=== PATIENT | male | born 1965 | race Hispanic/Latino ===

== ENCOUNTER 2017-12-02 17:20 | Emergency (ER) | payer SELFPAY ==
[2017-12-02] MEDS ORDERED: Lidocaine 1% (PF) 30 ML VIAL ONE (17:36)
[2017-12-02] MEDS ORDERED: Adacel (T-DAP) 0.5 ML VIAL ONE (17:36)
--- NOTE | 2017-12-02 18:28 | RAD ---
THREE VIEWS OF THE RIGHT THUMB: 12/02/17 HISTORY: [facility] Amputation of part of finger. FINDINGS: There is soft tissue irregularity and absence of the soft tissues involving the most distal portion o f the right thumb. No definite fracture is seen involving the underlying distal phalanx of the thumb. There is no dislocation seen. IMPRESSION: Absence of the distal subcutaneous soft tissues right thumb related to laceration. While the tuft of the distal phalanx of the thumb may be exposed due to absence of the soft tissues, no fracture is see n involving the distal phalanx right thumb. POS: [facility]
== END 2017-12-02 18:55 | disposition home or self-care (01) ==
LOC: ERS 17:20
DX: S68.021A Partial traumatic metacarpophalangeal amputation of right thumb, initial encounter (principal); F31.9 Bipolar disorder, unspecified; E11.9 Type 2 diabetes mellitus without complications; Z79.4 Long term (current) use of insulin; W22.8XXA Striking against or struck by other objects, initial encounter
CPT/HCPCS: 64450; 90471; 90715; J2001